=== PATIENT | female | born 1940 ===

== ENCOUNTER 2020-07-28 09:30 | Inpatient (IN) | payer OTHER ==
[~2020-07-28] VITALS: Ht 157.5 cm; Wt 89.8 kg
[2020-07-28] MEDS ORDERED: ZETIA10 MG PO (11:14)
[2020-07-28] MEDS ORDERED: ZYLOPRIM100 M1 PO (11:15)
[2020-07-28] MEDS ORDERED: TIAZAC180 MG PO (11:15)
[2020-07-28] MEDS ORDERED: COZAAR100 MG PO (11:15)
[2020-07-28] MEDS ORDERED: SIDEROL TABLET1 EACH PO (11:16)
[2020-07-28] MEDS ORDERED: BIOTIN1 MG PO (11:16)
[2020-07-28] MEDS ORDERED: B12 ACTIVE1000 MCG PO (11:16)
[2020-07-28] MEDS ORDERED: PREVACID30 M1 PO (11:16)
[2020-07-28] MEDS ORDERED: SYMBICORT 16010.2 GM IH (14:14)
[2020-08-01] MEDS ORDERED: FLONASE16 GM (08:48)
[2020-08-01] MEDS ORDERED: VITAMIN B-121000 MCG (08:48)
[2020-08-01] MEDS ORDERED: IRBESARTAN150 MG (08:48)
[2020-08-01] MEDS ORDERED: PROAIR HFA8.5 GM (08:49)
== END 2020-08-01 18:15 | disposition home or self-care (01) | DRG 741 ==
LOC: OB/GYN 07-31 05:30 → O/R 07-31 05:30 → SURH 07-31 09:30 → OB/GYN 07-31 18:29 → SURH 07-31 19:15 → OB/GYN 08-01 18:15
PROVIDERS: ADMIT Obstetrics & Gynecology Gynecologic Oncology; ATTEND Obstetrics & Gynecology Gynecologic Oncology
PROC: 0UT2FZZ Resection of Bilateral Ovaries, Via Natural or Artificial Opening With Percutaneous Endoscopic Assistance (ICD-10-PCS; 2020-07-31)
PROC: 0UT7FZZ Resection of Bilateral Fallopian Tubes, Via Natural or Artificial Opening With Percutaneous Endoscopic Assistance (ICD-10-PCS; 2020-07-31)
PROC: 07BC4ZZ Excision of Pelvis Lymphatic, Percutaneous Endoscopic Approach (ICD-10-PCS; 2020-07-31)
PROC: 0UT9FZZ Resection of Uterus, Via Natural or Artificial Opening With Percutaneous Endoscopic Assistance (ICD-10-PCS; principal; 2020-07-31 19:15)
DX: C54.1 Malignant neoplasm of endometrium (principal); N80.1 Endometriosis of ovary; N83.292 Other ovarian cyst, left side; N83.291 Other ovarian cyst, right side; N83.8 Other noninflammatory disorders of ovary, fallopian tube and broad ligament; I12.9 Hypertensive chronic kidney disease with stage 1 through stage 4 chronic kidney disease, or unspecified chronic kidney disease; N18.30 Chronic kidney disease, stage 3 unspecified